=== PATIENT | female | born 1950 | race Caucasian/White ===

== ENCOUNTER 2017-07-23 16:44 | Emergency (ER) | payer OTHER, MEDICARE ==
[~2017-07-23] VITALS: Ht 167.6 cm; Wt 106.8 kg
[~2017-07-23 16:44] MED LIST: ASPIR-LOW81 MG PO; ASPIRIN 81M81 MG/TA2 PO; DUO-KAPS1 CAP PO; FLEXERIL5 MG PO; LEVAQUIN 750MG750 M1 PO; LIPITOR 10MG10 MG PO; LIPITOR20 MG PO; MVI; PROBIOTICA100 MILLIO PO; VENTOLIN0.09 MG IH; ZITHROMAX TRI-500 MG PO
[2017-07-23 16:48] VITALS: TEMP 98.9
[2017-07-23] MEDS ORDERED: AMOXICILLIN 8751 TAB PO (17:45)
[2017-07-23 17:49] LABS: INFLUENZA A NEGATIVE; INFLUENZA B NEGATIVE
[2017-07-23 18:03] LABS: BASO % 0.2 % (0.0-2.0); EOS # 0.1 (0.0-0.7); EOS % 1.3 % (0-4.0); GRAN # 2.3 (1.4-6.5); GRAN % 44.5 % (42.2-75.2); HEMATOCRIT 42.6 % (37.0-47.0); HEMOGLOBIN 14.1 g/dl (12.5-16.0); INR 0.9 (0.8-3.0); LYMPH # 2.1 (1.2-3.4); LYMPH % 40.1 % (20.0-51.0); MEAN CELL VOLUME 94 fl (80.0-100.0); MEAN CORPUSCULAR HEMOGLOBIN 31 pg (27.0-31.0); MEAN CORPUSCULAR HGB CONC 33 g/dl (33.0-37.0); MEAN PLATELET VOLUME 9.9 fl (7.4-10.4); MONO # 0.7 (0.1-0.6); MONO % 13.5 % (1.7-9.3); PLATELET COUNT 302 K/mm3 (130-400); PROTHROMBIN TIME 10.5 SECONDS (9.7-12.8); RED BLOOD COUNT 4.53 M/mm3 (4.10-5.30); REDCELL DISTRIBUTION WIDTH-CV 13.7 % (11.5-14.5)
[2017-07-23 18:06] LABS: PARTIAL THROMBOPLASTIN TIME 27.3 SECONDS (26.0-37.0)
[2017-07-23 18:08] LABS: ALANINE AMINOTRANSFERASE 64 U/L (9-52); ALBUMIN 3.9 gm/dL (3.5-5.0); ALKALINE PHOSPHATASE 122 U/L (50-136); ANION GAP 9 mmol/L (7-16); AST,SGOT 54 U/L (15-37); BILIRUBIN,TOTAL 0.4 mg/dL (0.0-1.0); BLOOD UREA NITROGEN 17 mg/dL (7-17); CALCIUM 9.1 mg/dL (8.4-10.2); CARBON DIOXIDE 24 mmol/L (22-30); CHLORIDE 105 mmol/L (98-107); CREATININE, serum 0.61 mg/dL (0.52-1.25); GLUCOSE 97 mg/dL (74-106); SODIUM 137 mmol/L (137-145)
[2017-07-23] MEDS ORDERED: ZITHROMAX500 M2 PO (18:21)
[2017-07-23] MEDS ORDERED: TESSALON PERLE200 MG PO (18:21)
[2017-07-23 18:27] LABS: TROPONIN-I < 0.012 ng/mL (0.000-0.034)
[2017-07-23 20:10] VITALS: BP 143/73; PULSE 80
== END 2017-07-23 20:12 | disposition home or self-care (01) ==
LOC: COL.ER 16:44
PROVIDERS: Emergency Medicine
DX: J18.1 Lobar pneumonia, unspecified organism (principal); E11.9 Type 2 diabetes mellitus without complications; E78.5 Hyperlipidemia, unspecified; E66.9 Obesity, unspecified; Z79.82 Long term (current) use of aspirin
CPT/HCPCS: J0696; J7040

== ENCOUNTER → 2017-10-17 | Outpatient (CLI) | payer OTHER, MEDICARE ==
[~2017-10-17] MED LIST changes: +AMOXICILLIN 8751 TAB PO; +TESSALON PERLE200 MG PO; +ZITHROMAX500 M2 PO
== END ==
LOC: MC.RAD 07:10
DX: Z12.31 Encounter for screening mammogram for malignant neoplasm of breast (principal)

== ENCOUNTER 2018-04-12 10:15 | Outpatient (RCR) | payer OTHER, MEDICARE | END 2018-05-10 16:22 | disposition home or self-care (01) | LOC: WSC 10:15 | DX: M62.838 Other muscle spasm (principal); Z79.899 Other long term (current) drug therapy | CPT/HCPCS: G8984-GP; G8985-GP ==

== ENCOUNTER → 2018-11-22 | Outpatient (CLI) | payer MEDICARE | LOC: SUN.DIA 07:43 | DX: E11.9 Type 2 diabetes mellitus without complications (principal); E78.5 Hyperlipidemia, unspecified; I10 Essential (primary) hypertension; E66.9 Obesity, unspecified | CPT/HCPCS: G0108 ==

== ENCOUNTER → 2018-12-21 | Outpatient (CLI) | payer MEDICARE, OTHER | LOC: SUN.DIA 12-19 14:29 | DX: E11.9 Type 2 diabetes mellitus without complications (principal) ==

== ENCOUNTER → 2018-12-21 | Outpatient (CLI) | payer MEDICARE, OTHER | LOC: MC.RAD 06:53 | DX: Z12.31 Encounter for screening mammogram for malignant neoplasm of breast (principal) ==

== ENCOUNTER → 2019-04-20 | Outpatient (CLI) | payer MEDICARE, OTHER | LOC: COL.RAD 07:36 | DX: E27.8 Other specified disorders of adrenal gland (principal); R91.8 Other nonspecific abnormal finding of lung field | CPT/HCPCS: Q9967 ==

== ENCOUNTER 2019-08-29 18:59 | Emergency (ER) | payer MEDICARE, OTHER ==
[~2019-08-29] VITALS: Ht 167.6 cm; Wt 109.1 kg
[2019-08-29 19:12] VITALS: BP 148/78
[2019-08-29 19:37] VITALS: TEMP 97.4
[2019-08-29 19:47] LABS: COLLECTION METHOD CLEAN CATCH
[2019-08-29] MEDS ORDERED: GLUCOPHAGE500 MG/TAB PO (19:53)
[2019-08-29 19:55] LABS: BASO % 0.1 % (0.0-2.0); EOS # 0.2 (0.0-0.7); EOS % 1.6 % (0-4.0); GRAN # 11.2 (1.4-6.5); GRAN % 76.8 % (42.2-75.2); HEMATOCRIT 43.8 % (37.0-47.0); HEMOGLOBIN 14.3 g/dl (12.5-16.0); LYMPH # 2.1 (1.2-3.4); LYMPH % 14.6 % (20.0-51.0); MEAN CELL VOLUME 94 fl (80.0-100.0); MEAN CORPUSCULAR HEMOGLOBIN 31 pg (27.0-31.0); MEAN CORPUSCULAR HGB CONC 33 g/dl (33.0-37.0); MEAN PLATELET VOLUME 9.6 fl (7.4-10.4); MONO # 0.9 (0.1-0.6); MONO % 6.4 % (1.7-9.3); PLATELET COUNT 434 K/mm3 (130-400); RED BLOOD COUNT 4.66 M/mm3 (4.10-5.30); REDCELL DISTRIBUTION WIDTH-CV 13.7 % (11.5-14.5)
[2019-08-29 20:01] LABS: MUCOUS Present /lpf; PH 5 (5-8); SQUAMOUS EPITHELIAL 0-2 /hpf; URINE APPEARANCE Clear; URINE BACTERIA None Seen /hpf; URINE BILIRUBIN Negative (NEGATIVE); URINE BLOOD 2+ (NEGATIVE); URINE COLOR Yellow; URINE GLUCOSE Negative (NEGATIVE); URINE KETONE Negative (NEGATIVE); URINE LEUKOCYTE ESTERASE 1+ (NEGATIVE); URINE NITRATE Negative (NEGATIVE); URINE PROTEIN(semi-quant) Negative (NEGATIVE); URINE RBC 20-50 /hpf; URINE UROBILINOGEN Negative (NEGATIVE)
[2019-08-29 20:04] LABS: ALANINE AMINOTRANSFERASE 39 U/L (9-52); ALBUMIN 4.4 gm/dL (3.5-5.0); ALKALINE PHOSPHATASE 147 U/L (50-136); ANION GAP 12 mmol/L (7-16); AST,SGOT 41 U/L (15-37); BILIRUBIN,TOTAL 0.7 mg/dL (0.0-1.0); BLOOD UREA NITROGEN 25 mg/dL (7-17); CARBON DIOXIDE 24 mmol/L (22-30); CHLORIDE 106 mmol/L (98-107); CREATININE, serum 0.81 (0.52-1.25); GLUCOSE 181 mg/dL (74-106); POTASSIUM 4.3 mmol/L (3.4-5.0); SODIUM 141 mmol/L (137-145); TOTAL PROTEIN 7.8 gm/dL (6.4-8.2)
[2019-08-29 20:06] LABS: C-REACTIVE PROTEIN < 0.5 mg/dL (0.0-0.9)
[2019-08-29] MEDS ORDERED: ZOFRAN 4MG T4 MG/TAB PO (21:45)
[2019-08-29] MEDS ORDERED: NORCO 325 MG-51 TAB PO (21:45)
[2019-08-29] MEDS ORDERED: OMNICEF 300MG300 MG PO (21:45)
[2019-08-29 21:58] VITALS: PULSE 94
== END 2019-08-29 21:56 | disposition home or self-care (01) ==
LOC: COL.ER 18:59
PROVIDERS: Emergency Medicine
DX: N20.2 Calculus of kidney with calculus of ureter (principal); E11.9 Type 2 diabetes mellitus without complications; E78.5 Hyperlipidemia, unspecified; Z79.84 Long term (current) use of oral hypoglycemic drugs
CPT/HCPCS: J1885; J2405; J3010; J7030; Q9967

== ENCOUNTER 2019-10-27 09:07 | Emergency (ER) | payer MEDICARE ==
[~2019-10-27] VITALS: Ht 167.6 cm; Wt 106.8 kg
[~2019-10-27 09:07] MED LIST changes: +GLUCOPHAGE500 MG/TAB PO; +NORCO 325 MG-51 TAB PO; +OMNICEF 300MG300 MG PO; +ZOFRAN 4MG T4 MG/TAB PO
[2019-10-27 09:15] VITALS: TEMP 97.5
[2019-10-27 09:53] LABS: BASO % 0.2 % (0.0-2.0); EOS % 0.3 % (0-4.0); GRAN # 11.2 (1.4-6.5); GRAN % 83.5 % (42.2-75.2); HEMATOCRIT 42.4 % (37.0-47.0); HEMOGLOBIN 13.8 g/dl (12.5-16.0); LYMPH # 1.7 (1.2-3.4); LYMPH % 12.3 % (20.0-51.0); MEAN CELL VOLUME 92 fl (80.0-100.0); MEAN CORPUSCULAR HEMOGLOBIN 30 pg (27.0-31.0); MEAN CORPUSCULAR HGB CONC 33 g/dl (33.0-37.0); MEAN PLATELET VOLUME 10.1 fl (7.4-10.4); MONO # 0.5 (0.1-0.6); MONO % 3.4 % (1.7-9.3); PLATELET COUNT 384 K/mm3 (130-400); REDCELL DISTRIBUTION WIDTH-CV 14.1 % (11.5-14.5)
[2019-10-27] MEDS ORDERED: NORCO 325 MG-51 TAB PO ×2 (09:53→09:54)
[2019-10-27] MEDS ORDERED: ZOFRAN 4MG T4 MG/TAB PO (09:54)
[2019-10-27 10:33] LABS: COLLECTION METHOD CLEAN CATCH
[2019-10-27 10:37] LABS: BILIRUBIN,TOTAL 0.6 mg/dL (0.0-1.0); CALCIUM 9.1 mg/dL (8.4-10.2); CREATININE, serum 0.82 (0.52-1.25); TOTAL PROTEIN 7.1 gm/dL (6.4-8.2)
[2019-10-27 10:40] LABS: MUCOUS Present /lpf; PH 6 (5-8); SQUAMOUS EPITHELIAL 0-2 /hpf; URINE APPEARANCE Clear; URINE BACTERIA None Seen /hpf; URINE BILIRUBIN Negative (NEGATIVE); URINE BLOOD Negative (NEGATIVE); URINE COLOR Yellow; URINE GLUCOSE Negative (NEGATIVE); URINE KETONE Trace (NEGATIVE); URINE LEUKOCYTE ESTERASE Negative (NEGATIVE); URINE NITRATE Negative (NEGATIVE); URINE PROTEIN(semi-quant) Negative (NEGATIVE); URINE UROBILINOGEN Negative (NEGATIVE)
[2019-10-27 11:44] VITALS: BP 135/60; PULSE 68
== END 2019-10-27 11:39 | disposition home or self-care (01) ==
LOC: COL.ER 09:07
PROVIDERS: Emergency Medicine
DX: N23 Unspecified renal colic (principal); Z79.84 Long term (current) use of oral hypoglycemic drugs
CPT/HCPCS: A4216; J0696; J1170; J1885; J2405; J2550; J7030

== ENCOUNTER → 2020-03-20 | Outpatient (CLI) | payer MEDICARE | LOC: MC.RAD 02-04 07:45 | DX: Z12.31 Encounter for screening mammogram for malignant neoplasm of breast (principal) ==

== ENCOUNTER → 2021-04-07 | Outpatient (CLI) | payer MEDICARE | LOC: MC.RAD 08:28 | DX: Z12.31 Encounter for screening mammogram for malignant neoplasm of breast (principal) ==

== ENCOUNTER 2021-11-23 15:05 | Emergency (ER) | payer MEDICARE ==
[~2021-11-23] VITALS: Ht 170.2 cm; Wt 104.5 kg
[2021-11-23 15:17] VITALS: TEMP 97.8
[2021-11-23 15:17] LABS: COLLECTION METHOD CLEAN CATCH
[2021-11-23 15:32] LABS: MUCOUS Present (NOT PRESENT); PH 6 (5-8); SQUAMOUS EPITHELIAL 0-2 /hpf (0-10); URINE APPEARANCE Cloudy (CLEAR/HAZY); URINE BACTERIA None Seen /hpf (NONE SEEN); URINE BILIRUBIN Negative (NEGATIVE); URINE BLOOD 3+ (NEGATIVE); URINE COLOR Yellow (YELLOW); URINE GLUCOSE Negative (NEGATIVE); URINE KETONE Negative (NEGATIVE); URINE LEUKOCYTE ESTERASE Trace (NEGATIVE); URINE NITRATE Negative (NEGATIVE); URINE PROTEIN(semi-quant) 1+ (NEGATIVE); URINE RBC >50 /hpf (0-2); URINE UROBILINOGEN Negative (NEGATIVE)
[2021-11-23 15:59] LABS: BASO % 0.4 % (0.0-2.0); EOS # 0.3 K/mm3 (0.0-0.7); EOS % 2.3 % (0.0-4.0); GRAN # 7.6 K/mm3 (1.4-6.5); GRAN % 67.3 % (42.2-75.2); HEMATOCRIT 41.9 % (37.0-47.0); HEMOGLOBIN 13.8 g/dl (12.5-16.0); LYMPH # 2.5 K/mm3 (1.2-3.4); LYMPH % 22.4 % (20.0-51.0); MEAN CELL VOLUME 94 fl (80.0-100.0); MEAN CORPUSCULAR HEMOGLOBIN 31 pg (27-31); MEAN CORPUSCULAR HGB CONC 33 g/dl (33.0-37.0); MEAN PLATELET VOLUME 9.8 fl (7.4-10.4); MONO # 0.8 K/mm3 (0.1-0.6); MONO % 7.3 % (1.7-9.3); PLATELET COUNT 420 K/mm3 (130-400); RED BLOOD COUNT 4.48 M/mm3 (4.10-5.30); REDCELL DISTRIBUTION WIDTH-CV 13.5 % (11.5-14.5)
[2021-11-23 16:10] LABS: ALBUMIN 3.8 gm/dL (3.4-4.8); BILIRUBIN,TOTAL 0.6 mg/dL (0.2-1.2); C-REACTIVE PROTEIN 0.39 mg/dL (0.00-0.50); CALCIUM 9.4 mg/dL (8.4-10.2); CREATININE, serum 0.92 mg/dL (0.57-1.11); POTASSIUM 4.1 mmol/L (3.5-4.5); TOTAL PROTEIN 7.1 gm/dL (6.2-8.1)
[2021-11-23] MEDS ORDERED: CEFTIN500 MG PO (17:07)
[2021-11-23 17:23] VITALS: BP 123/68; PULSE 71
== END 2021-11-23 17:23 | disposition home or self-care (01) ==
LOC: COL.ER 15:05
PROVIDERS: Personal Emergency Response Attendant; Physician Assistant
DX: N20.0 Calculus of kidney (principal)
CPT/HCPCS: J0696; J1885; J2270; J2405; J7030

== ENCOUNTER → 2022-04-20 | Outpatient (CLI) | payer MEDICARE ==
[~2022-04-20] MED LIST changes: +CEFTIN500 MG PO
== END ==
LOC: MC.RAD 08:01
DX: Z12.31 Encounter for screening mammogram for malignant neoplasm of breast (principal)